=== PATIENT | female | born 1995 | race Caucasian/White ===

== ENCOUNTER → 2020-11-08 | Outpatient (CLI) | payer OTHER ==
[~2020-11-08] MED LIST: ARTHRITIS PAIN100 GM TOP; AUROVELA 21 1.1 EACH PO; CREON DR 3,0001 EACH PO; CYCLOBENZAPRINE10 MG PO; FAMOTIDINE20 MG PO; METFORMIN HCL500 MG PO; PROAIR HFA8.5 GM INH; PROZAC40 MG PO; SINGULAIR10 MG PO; VITAMIN C500 M4 PO; VITAMIN D21250 MCG PO; ZYRTEC10 MG PO
[2020-11-08 09:58] LABS: RED BLOOD COUNT 4.76 M/UL (4.00-5.10); WHITE BLOOD COUNT 10.1 K/UL (4.5-11.0)
== END ==
LOC: OPSV2 08:00
PROVIDERS: Podiatrist Foot & Ankle Surgery
DX: Z01.812 Encounter for preprocedural laboratory examination (principal); M20.5X1 Other deformities of toe(s) (acquired), right foot; M77.41 Metatarsalgia, right foot
CPT/HCPCS: 36415; 85025

== ENCOUNTER → 2020-11-16 | Day surgery (SDC) | payer OTHER | END | disposition home or self-care (01) | LOC: OR 10-19 07:45 | DX: M21.621 Bunionette of right foot (principal); M21.6X1 Other acquired deformities of right foot; K21.9 Gastro-esophageal reflux disease without esophagitis; G89.29 Other chronic pain; E66.01 Morbid (severe) obesity due to excess calories; M19.90 Unspecified osteoarthritis, unspecified site; F41.8 Other specified anxiety disorders; D64.9 Anemia, unspecified; E28.2 Polycystic ovarian syndrome; Z20.822 Contact with and (suspected) exposure to COVID-19 | CPT/HCPCS: 73630; 76000; 84703; C1713; J0690; J1100; J1885; J2250; J2405; J2704; J2795; J3010; J7120 ==

== ENCOUNTER → 2020-11-26 | Outpatient (CLI) | payer OTHER | LOC: KOH-I 13:55 | DX: M79.671 Pain in right foot (principal) | CPT/HCPCS: 73630 ==

== ENCOUNTER → 2020-12-11 | Outpatient (CLI) | payer OTHER | LOC: KOH-I 16:04 | DX: M21.611 Bunion of right foot (principal); Z47.89 Encounter for other orthopedic aftercare; Z98.890 Other specified postprocedural states | CPT/HCPCS: 73630 ==

== ENCOUNTER → 2021-01-15 | Outpatient (CLI) | payer OTHER | LOC: KOH-I 10:47 | DX: M21.611 Bunion of right foot (principal); M79.671 Pain in right foot; Z96.698 Presence of other orthopedic joint implants | CPT/HCPCS: 73630 ==

== ENCOUNTER → 2021-01-29 | Outpatient (CLI) | payer OTHER | LOC: KOH-I 09:18 | DX: M79.671 Pain in right foot (principal) | CPT/HCPCS: 73630 ==

== ENCOUNTER → 2021-02-26 | Outpatient (CLI) | payer OTHER | LOC: KOH-I 11:07 | DX: M79.671 Pain in right foot (principal) | CPT/HCPCS: 73630 ==

== ENCOUNTER → 2021-03-28 | Outpatient (CLI) | payer OTHER | LOC: KOH-I 09:30 | DX: M79.671 Pain in right foot (principal) | CPT/HCPCS: 73630 ==

== ENCOUNTER → 2021-05-09 | Outpatient (CLI) | payer OTHER | LOC: KOH-I 13:29 | DX: M79.671 Pain in right foot (principal) | CPT/HCPCS: 73630 ==

== ENCOUNTER 2021-06-03 11:17 | Emergency (ER) | payer OTHER ==
[2021-06-03 12:14] LABS: HEMOGLOBIN 14.3 gm/dl (12.3-15.3); RED BLOOD COUNT 4.7 M/UL (4.00-5.10); WHITE BLOOD COUNT 10.4 K/UL (4.5-11.0)
[2021-06-03 12:54] LABS: BUN/CREATININE RATIO 8 (0-10)
== END 2021-06-03 15:51 | disposition home or self-care (01) ==
LOC: ER1 11:17
PROVIDERS: Physician Assistant
DX: R10.30 Lower abdominal pain, unspecified (principal); R10.814 Left lower quadrant abdominal tenderness; K21.9 Gastro-esophageal reflux disease without esophagitis; Z90.49 Acquired absence of other specified parts of digestive tract; Z91.040 Latex allergy status
CPT/HCPCS: 80053; 81001; 84703; 85025; 99284; Q9967

== ENCOUNTER → 2021-06-24 | Outpatient (CLI) | payer OTHER | LOC: KOH-I 08:55 | DX: S92.321A Displaced fracture of second metatarsal bone, right foot, initial encounter for closed fracture (principal); S92.331A Displaced fracture of third metatarsal bone, right foot, initial encounter for closed fracture; S92.351A Displaced fracture of fifth metatarsal bone, right foot, initial encounter for closed fracture | CPT/HCPCS: 73700 ==

== ENCOUNTER 2021-07-02 19:14 | Emergency (ER) | payer OTHER ==
[2021-07-02] MEDS ORDERED: IBUPROFEN800 MG PO (21:23)
[2021-07-02] MEDS ORDERED: ONDANSETRON ODT4 MG SL (21:23)
== END 2021-07-02 21:36 | disposition home or self-care (01) ==
LOC: ER1 19:14
DX: S06.0X0A Concussion without loss of consciousness, initial encounter (principal); H53.8 Other visual disturbances; K21.9 Gastro-esophageal reflux disease without esophagitis; V49.40XA Driver injured in collision with unspecified motor vehicles in traffic accident, initial encounter; Y92.410 Unspecified street and highway as the place of occurrence of the external cause
CPT/HCPCS: 70496; 70498; 99284; Q9967

== ENCOUNTER 2021-09-23 17:26 | Emergency (ER) | payer OTHER ==
[~2021-09-23 17:26] MED LIST changes: +IBUPROFEN800 MG PO; +ONDANSETRON ODT4 MG SL
[2021-09-23 18:44] LABS: HEMOGLOBIN 15.2 gm/dl (12.3-15.3); RED BLOOD COUNT 5.38 M/UL (4.00-5.10); WHITE BLOOD COUNT 7.2 K/UL (4.5-11.0)
[2021-09-23 19:15] LABS: BUN/CREATININE RATIO 10 (0-10)
[2021-09-23] MEDS ORDERED: TAMIFLU75 MG PO (19:50)
== END 2021-09-23 20:15 | disposition home or self-care (01) ==
LOC: ER1 17:26
PROVIDERS: Emergency Medicine
DX: J11.1 Influenza due to unidentified influenza virus with other respiratory manifestations (principal); K21.9 Gastro-esophageal reflux disease without esophagitis; Z88.8 Allergy status to other drugs, medicaments and biological substances; Z20.822 Contact with and (suspected) exposure to COVID-19
CPT/HCPCS: 0240U; 71045; 80053; 81001; 82550; 82553; 83690; 84484; 84703; 85025; 87081; 87880; 93005; 99285

== ENCOUNTER → 2021-12-03 | Outpatient (CLI) | payer OTHER ==
[~2021-12-03] MED LIST changes: +TAMIFLU75 MG PO
== END ==
LOC: KOH-I 09:43
DX: M79.671 Pain in right foot (principal); M20.41 Other hammer toe(s) (acquired), right foot; Z98.890 Other specified postprocedural states
CPT/HCPCS: 73630

== ENCOUNTER → 2021-12-10 | Outpatient (CLI) | payer OTHER | LOC: KOH-I 13:17 | DX: M79.671 Pain in right foot (principal); M79.89 Other specified soft tissue disorders; Z96.7 Presence of other bone and tendon implants | CPT/HCPCS: 73718 ==